=== PATIENT | male | born 2000 | race Caucasian/White ===

== ENCOUNTER 2023-09-11 16:27 | Emergency (ER) | payer MEDICAID, OTHER ==
[~2023-09-11] VITALS: Ht 193 cm; Wt 78.5 kg
[2023-09-11 16:41] VITALS: BP 114/71; TEMP 97.9; O2SAT 98
[2023-09-11] MEDS ORDERED: GUAI10SY3 PO (17:08)
[2023-09-11] MEDS ORDERED: ACET-2605 PO (17:08)
== END 2023-09-11 17:25 | disposition home or self-care (01) ==
LOC: ER 16:27
DX: J06.9 Acute upper respiratory infection, unspecified (principal); R05.9 Cough, unspecified; R09.81 Nasal congestion

== ENCOUNTER 2025-05-30 23:03 | Emergency (ER) | payer MEDICAID ==
[~2025-05-30] VITALS: Ht 190.5 cm; Wt 90.7 kg
[~2025-05-30 23:03] MED LIST: ACET-2605 PO; GUAI10SY3 PO
[2025-05-31 01:06] VITALS: BP 121/70; TEMP 99.1; O2SAT 96
[2025-05-31] MEDS ORDERED: HYDROMORPHONE 1 MG/1 ML DISP.SYRIN ONE (01:40)
[2025-05-31] MEDS ORDERED: ONDANSETRON HCL/PF 4 MG/2 ML VIAL ONE (01:40)
[2025-05-31] MEDS ORDERED: CEFTRIAXONE 1GM BAG (ER ONLY) 50 ML IV ONE (01:40)
[2025-05-31] MEDS: IV NS 0.9% 1,000 ML IV ONE (01:53)
[2025-05-31] MEDS: HYDROMORPHONE 1 MG/1 ML DISP.SYRIN IV ONE (01:53)
[2025-05-31] MEDS: ONDANSETRON HCL/PF - ER 4 MG/2 ML VIAL IV ONE (01:53)
[2025-05-31] MEDS: CEFTRIAXONE 1GM BAG (ER ONLY) 1 GM/50 ML PIGGYBACK IV ONE (01:53)
[2025-05-31 02:02] LABS: PLATELET COUNT (AUTO) 250 K/uL (150-450); RED BLOOD CELL COUNT(AUTO) 4.97 MIL/uL (4.5-6.0); RED CELL DISTRIBUTION WIDTH 12.3 % (11.5-15.0); WHITE BLOOD COUNT (AUTO) 11.1 K/uL (4.3-11.0)
[2025-05-31 02:09] LABS: CALCIUM, SERUM 9.0 mg/dL (8.5-10.1); CREATININE 1.2 mg/dL (0.6-1.3); SODIUM SERUM 140.0 mmol/L (136-145); UREA NITROGEN, BLOOD 17.0 mg/dL (7-18)
[2025-05-31 02:19] LABS: ASPARTATE AMINOTRANSFERASE 15.0 U/L (15-37); TOTAL PROTEIN, SERUM 7.8 g/dL (6.4-8.2)
[2025-05-31 02:32] LABS: MONOTEST NEGATIVE (NEGATIVE)
[2025-05-31] MEDS ORDERED: AMOX-430 PO (02:54)
[2025-05-31] MEDS ORDERED: PRED50TA PO (02:54)
== END 2025-05-31 03:12 | disposition home or self-care (01) ==
LOC: ER 23:05
DX: J03.90 Acute tonsillitis, unspecified (principal); F17.200 Nicotine dependence, unspecified, uncomplicated; Z79.52 Long term (current) use of systemic steroids; Z79.899 Other long term (current) drug therapy; Z20.822 Contact with and (suspected) exposure to COVID-19
CPT/HCPCS: 99284; 96365; 96375; 87426; 85025; 87040; 87804; 86308; 36415; 87880; 80053; 87070; J2405 ×2; J7030; J0696; J1171; 86403-TC